=== PATIENT | male | born 1985 | race African-American/Black ===

== ENCOUNTER 2019-10-06 20:52 | Emergency (ER) | payer OTHER ==
[~2019-10-06] VITALS: Ht 180.3 cm; Wt 68.0 kg
[~2019-10-06 20:52] MED LIST: IBUPROFEN 800800 MG PO; NOHOMEMEDICATIONS; PHENERGAN 25 MG25 M1 PO; ZOFRAN ODT4 MG PO
[2019-10-06 21:46] LABS: ABSOLUTE NEUTROPHILS 3.2 thou/uL (1.4-8.2); BASOPHILS 0.6 % (0.0-2.0); EOSINOPHILS 1.3 % (0.0-3.0); HEMOGLOBIN 14.4 gm/dL (14.0-18.0); LYMPHOCYTES 35.3 % (24.0-44.0); MCHC 33.5 g/dL (28.0-37.0); MCV 95.5 fL (80.0-100.0); MONOCYTES 7.7 % (1.0-8.0); PLATELET COUNT 258 thou/uL (150-400); POLYS 55.1 % (36.0-66.0); WBC 5.9 thou/uL (4.0-11.0)
[2019-10-06 21:57] LABS: ALBUMIN 4.2 g/dL (3.4-5.0); ANION GAP < 0 mmol/L (7-16); BUN 11 mg/dL (7-18); CALCIUM 9.5 mg/dL (8.5-10.1); CHLORIDE 97 mmol/L (98-107); CO2 33 mmol/L (21-32); CREATININE 0.9 mg/dL (0.7-1.3); GLUCOSE 91 mg/dL (74-106); POTASSIUM 3.5 mmol/L (3.5-5.1); SGOT 28 U/L (15-37); SGPT 54 U/L (30-65); SODIUM 120 mmol/L (136-145); TOTAL BILIRUBIN 0.1 mg/dL (<0.1-1.0); TOTAL PROTEIN 8.4 g/dL (6.4-8.2); TROPONIN-I <0.06 ng/mL (<0.06)
[2019-10-06 22:27] LABS: AMP/METHAMP Negative (Negative); BARBITURATES Negative (Negative); BENZODIAZEPINES Negative (Negative); METHADONE Negative (Negative); OPIATES Negative (Negative); PCP POSITIVE (Negative)
[2019-10-06 22:36] LABS: COCAINE POSITIVE (Negative)
[2019-10-06] MEDS ORDERED: NORVASC5 MG PO (23:00)
[2019-10-06 23:25] VITALS: BP 155/114
--- NOTE | 2019-10-07 10:23 | EKG ---
[place] [address] [email or web address] [place] [address] ELECTROCARDIOGRAM REPORT Name: SONIA HELM Room #: [facility]#: [id number] Admission: 10/06/19 Attend Phys: Discharge: 10/06/19 Date of : 87 Report #: [id number] THIS REPORT FOR: //name// [facility] ED Test Date: 2019-10-06 Test Time: 21:18:27 Pat Name: SONIA HELM Department: Room: Gender: [employer] Supervisor: : [id number] Requested By: Esther Simon Order Number: [id number] MD: Johnny Lantigua Measurements Intervals [place] Rate: 71 P: 56 MI: 142 QRS: 53 QRSD: 81 T: 21 QT: 397 QTc: 432 Interpretive Statements Sinus rhythm ST elev, probable normal early repol pattern No previous ECG available for comparison Electronically Signed On 10-07-2019 10:23:15 [employer] by Johnny Lantigua [email or web address] <ELECTRONICALLY SIGNED> By: Johnny Lantigua MD 10/07/19 1023 2118 [id number] Johnny Lantigua MD /EPI
== END 2019-10-06 23:51 | disposition home or self-care (01) ==
LOC: ER 20:52
PROVIDERS: Physician Assistant
DX: I10 Essential (primary) hypertension (principal); F14.90 Cocaine use, unspecified, uncomplicated; F16.10 Hallucinogen abuse, uncomplicated; R42 Dizziness and giddiness; Z76.0 Encounter for issue of repeat prescription